=== PATIENT | female | born 1990 | race Caucasian/White ===

== ENCOUNTER 2025-01-09 11:33 | Emergency (ER) | payer MEDICAID ==
[~2025-01-09] VITALS: Ht 152.4 cm; Wt 54.0 kg
[2025-01-09 11:38] VITALS: O2SAT 100
[2025-01-09 11:43] VITALS: BP 133/80; PULSE 77; RESP 16; TEMP 36.9; O2SAT 99
[2025-01-09] MEDS ORDERED: CEPH500T MT (11:49)
[2025-01-09] MEDS ORDERED: CETI10CA11 MT (11:49)
== END 2025-01-09 12:08 | disposition home or self-care (01) ==
LOC: ER 11:33
DX: S40.862A Insect bite (nonvenomous) of left upper arm, initial encounter (principal); S40.861A Insect bite (nonvenomous) of right upper arm, initial encounter; W57.XXXA Bitten or stung by nonvenomous insect and other nonvenomous arthropods, initial encounter; Y93.89 Activity, other specified; Y92.89 Other specified places as the place of occurrence of the external cause; Y99.8 Other external cause status
CPT/HCPCS: 99283